=== PATIENT | male | born 1980 | race Hispanic/Latino ===

== ENCOUNTER 2024-05-11 22:02 | Emergency (ER) | payer SELFPAY ==
[2024-05-11 22:03] VITALS: BP 147/87
[2024-05-11 23:25] VITALS: BMI 33.5
--- NOTE | 2024-05-11 23:44 | ED.GENMED ---
History of Present Illness
General
Chief Complaint: Abdominal Pain
Source: patient
Exam Limitations: none
Time Seen by Provider: 05/11/24 23:15
History of Present Illness
History of Present Illness:
This is a 43 year old male that comes in with c/o abd pain. States that he has pain on both the lower abd and it goes back and forth. States that sometimes it goes around to his back. States that this has been going on for a couple of weeks. States
that he went to see the PCP and he was started on Metformin. States that he believes he had a fever on Monday and Monday but he did not take his temperature he just felt hot. Denies any chills, chest pain, SOB, nausea, vomiting, diarrhea,
headache, dizziness, urinary burning.
Past History
Past History
ED Past Medical History: NIDDM; Negative Asthma, HTN or Hypercholesterolemia
ED Past Surgical History: None
Social History
Alcohol: None
Personal:
Living: with family
Review of Systems
Review of Systems
All Other Systems: ROS reviewed and negative except as documented in HPI and ROS
Constitutional: Reports fever (Monday and Monday); Denies chills
EENT: Reports no symptoms
Respiratory: Reports no symptoms; Denies cough or trouble breathing
Cardiac: Reports no symptoms; Denies chest pain
ABD/GI: Reports abdominal pain; Denies nausea, vomiting or diarrhea
: Reports no symptoms; Denies dysuria, frequency or urgency
Musculoskeletal: Reports no symptoms
Skin: Reports no symptoms
Neurological: Reports no symptoms; Denies dizzy or headache
Psychiatric: Reports no symptoms
Phy Exam
General Physical Exam
General Presentation: well appearing and no apparent distress
General age: appears stated age
General Skin: warm and dry
General Habitus: normal
General Mental: alert
General Hydration: appears well hydrated
ENT Exam
ENT Exam: TM's normal, pharynx normal and neck supple
Eye Exam
Eye Exam: EOMI
Cardiovascular Exam
Cardiovascular Exam: regular rate/rhythm, no edema, no murmur and normal peripheral pulses
Pulmonary Exam
Pulmonary Exam: lungs clear, no respiratory distress, no rales, chest non tender, no crackles, no rhonchi, no wheezing and no cough
Gastrointestinal Exam
Gastrointestinal Exam: normal bowel sounds, soft, no organomegaly, no pulsatile mass, non distended and tender (Bilateral lower abd tenderness with palpation)
Musculoskeletal Exam
Musculoskeletal Exam: full ROM and no edema
Skin Exam
Skin Exam: normal color, warm/dry, no rash and no petechia
Psychiatric Exam
Psychiatric Exam: normal mood/affect
Course
Orders/Labs/Results
Orders:
Orders
05/11/24 23:29
Complete Blood Count/With Diff Urgent
Comprehensive Metabolic Panel Urgent
Lipase Urgent
Urinalysis Reflex To Culture Urgent
Date Specimen was Collected: 05/11/24
Time Specimen was Collected: 23:27
05/11/24 23:44
0.9% Sodium Chloride 500 ml [Nss] 500 ml IV BOLUS
Ketorolac [Toradol] 30 mg IV NOW STA
05/12/24 00:03
CT Abd/pelvis W Iv Cont Urgent
Reason For Exam: Bilateral lower abd pain
Abnormal Lab Results
05/11/24
23:29
WBC 11.6 H 10^3/uL
(4.8-10.8)
Absolute Lymphs (auto) 4.8 H 10^3/uL
(1.2-3.4)
Absolute Monos (auto) 0.9 H 10^3/uL
(0.1-0.6)
Glucose 121 H mg/dl
(70-99)
ALT 84 H U/L
(0-50)
05/11/24 23:29
05/11/24 23:29
WBC very slightly elevated. hyperglycemia. ALT elevation. Lipase normal at 256, Urine negative for infection.
Vital Signs
Initial and Last Documented VS:
Initial Vital Signs
Temp Pulse Resp BP Pulse Ox
98.4 F 98 18 147/87 98
05/11/24 22:03 05/11/24 22:03 05/11/24 22:03 05/11/24 22:03 05/11/24 22:03
Last Documented Vital Signs
Temp Pulse Resp BP Pulse Ox
98.4 F 98 18 147/87 98
05/11/24 22:03 05/11/24 22:03 05/11/24 22:03 05/11/24 22:03 05/11/24 22:03
MDM/Problems Addressed
Differential Diagnosis Includes:
Degenerative disc disease, renal calculus
MDM/Problems Addressed:
This is a 43 year old male that comes in with c/o bilateral lower abd pain. States that this has been going on for a couple of weeks and he went to see the PCP. Patient was started on Metformin and he was told that if the pain continues to go to the
ER.
Will check labs, urine and get CT scan.
Back into see patient. Explained that his blood work shows that his blood sugar is elevated. Patient to continue with his Metformin and follow up with the family doctor. Explained that his CT scan is negative for any acute process, there is no
inflammation, renal calculi or obstruction. 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 Explained that the nerves that come from the back wrap around to the abd and this may be causing some
discomfort. Patient can use Tylenol or Ibuprofen for pain. Follow up with the family doctor. Return with any concerns .
Chronic conditions affecting care: DM
Acute Exacerbation and/or Progression of Chronic Illness:
NA
*Radiology
Radiology exam reviewed: radiology read reviewed (CT night hawk- No specific findings to account for the patient's abdominal pain. Normal appendix. No renal or obstructing ureteral stones. No hydronephrosis or hydroureter. Bowel is without evidence
of obstruction. gallstones but no evidence of surrounding inflammatory changes or biliary dilation.) and other (CT cont- Mild fatty liver. )
*EKG
Interpreted by ED Provider?: NA
Rate: EKG- N/A
*[employer] Interpretation
Rate: [employer]- N/A
*Critical Care Note
Total Time (30-74mins, 75-104mins- exclusive of procedures): Not Applicable
ED Attending Note
-
Portions of this chart may have been created with voice recognition software.� Occasional wrong word or��sound alike� substitutions may have occurred due to the inherent limitations of voice recognition software.
Discharge Plan
Departure
Patient Disposition: Home (Routine Discharge)
Date of Disposition: 05/12/24
Time of Disposition: 02:51
Patient with high blood pressure during this ER visit?: Yes
Condition: Good
Covid-19: Not Applicable
Discharge Problem:
Abdominal pain, bilateral lower quadrant
Instructions: Abdominal Pain, BLOOD PRESSURE
Referrals:
NONE,* [Family Provider] -
Activity Restrictions/Additional Instructions:
As discussed, your blood sugar is still elevated. Please continue with your Metformin and increase your water intake to 8-8oz glasses daily. Your CT scan is negative for any acute process, there is no inflammation, obstruction or renal calculus.
This is most likely coming from the back as the nerves wrap around to the abdomen and can cause some discomfort. Please use Tylenol or Ibuprofen for pain. IF YOU HAVE ANY OTHER CONCERNS PLEASE RETURN TO THE EMERGENCY ROOM
Interventions
Interventions:
*Risk Screen - Suicide Last Done: 05/11/24 22:03
*General Assessment Last Done: 05/11/24 22:03
*Neglect/Abuse Screening Last Done: 05/11/24 22:03
ED- Fall Risk Assessment Last Done: 05/11/24 23:20
*ED COVID-19 Vaccine History Last Done: 05/11/24 22:03
SZ-Nmgubh-Xvnuhquwyj Assessment Last Done: 05/11/24 23:20
Discharge Date and Time
Print Language: INDONESIAN
[2024-05-11 23:50] LABS: % Basophils 0.9 % (0-2); % Eosinophils 4.1 % (0-6); % Immature Granulocytes 0.3 % (0-0.5); % Lymphocytes 41.2 % (20.5-51.1); % Monocytes 7.6 % (1.7-9.3); % Neutrophils 45.9 % (42.2-75.2); Absolute Basophils 0.1 10^3/uL (0-0.2); Absolute Eosinophils 0.5 10^3/uL (0-0.7); Absolute Lymphocytes 4.8 10^3/uL (1.2-3.4); Absolute Monocytes 0.9 10^3/uL (0.1-0.6); Absolute Neutrophils 5.4 10^3/uL (1.4-6.5); Hemoglobin 17.1 g/dL (13.0-18.0); Mean Corp Hgb Conc. 34.9 g/dL (33.0-37.0); Mean Corpuscular Hgb 29.8 pg (27.0-31.0); Mean Corpuscular Volume 85.4 fL (80.0-94.0); Mean Platelet Volume 10.1 fL (7.4-10.4); Nucleated Red Blood Cells % 0 % (-); Platelet Count 252 10^3/uL (130-400); Red Blood Cell Count 5.74 10^6/uL (4.70-6.10); White Blood Cell Count 11.6 10^3/uL (4.8-10.8)
[2024-05-11 23:59] LABS: Urine Albumin Negative (Neg - Trace); Urine Bilirubin Negative (Negative); Urine Character Clear (Clear); Urine Color Yellow; Urine Glucose Negative (Negative); Urine Ketone Negative (Negative); Urine Leukocyte Negative (Negative); Urine Nitrite Negative (Negative); Urine Occult Blood Negative (Negative); Urine Urobilinogen Negative (Neg - 1+)
[2024-05-12 00:02] LABS: ALT (SGPT) 84 U/L (0-50); AST (SGOT) 43 U/L (17-59); Albumin 4.3 g/dl (3.5-5.0); Alkaline Phosphatase 116 U/L (38-126); Blood Urea Nitrogen 17 mg/dl (9-20); Calcium 9.6 mg/dl (8.4-10.2); Carbon Dioxide 26 mmol/L (22-30); Chloride 104 mmol/L (98-107); Estimated Creatinine Clearance 111 ml/min; Glucose 121 mg/dl (70-99); Lipase 256 U/L (23-300); Potassium 4.2 mmol/L (3.5-5.1); Sodium 141 mmol/L (135-145); Total Bilirubin 0.5 mg/dl (0.2-1.3); Total Protein 7.2 g/dl (6.3-8.2); eGFR > 60.00
[2024-05-12] MEDS: NSS 500 IV (00:10)
[2024-05-12] MEDS: TORADOL 30 MG IV (00:11)
[2024-05-12 03:25] VITALS: BP 126/84
== END 2024-05-12 03:25 | disposition home or self-care (01) ==
LOC: EMR 22:02
PROVIDERS: Emergency Medicine; EMERGENCY PHYSICIAN Student in an Organized Health Care Education/Training Program
DX: R10.32 Left lower quadrant pain (principal); R10.31 Right lower quadrant pain; E11.65 Type 2 diabetes mellitus with hyperglycemia; Z79.84 Long term (current) use of oral hypoglycemic drugs
CPT/HCPCS: 96374; 96361; 99284; 74177; 80053; 81003; 83690; 85025; Q9967